=== PATIENT | male | born 1930 | race Caucasian/White ===

== ENCOUNTER → 2016-12-28 | Outpatient (CLI) | payer MEDICARE, OTHER ==
[2014-04-04 11:15] VITALS: Ht 169.7 cm; Wt 81.8 kg
[~2016-12-28] VITALS: Ht 169.7 cm; Wt 81.8 kg
[~2016-12-28] MED LIST: ACET-2161 PO; AMIO200T2 PO; AMLO5TAB2 PO; APIX5TAB PO; ASPI325T PO; CALC-39 PO; DOCU-175 PO; FURO20TA4 PO; MELA10TA2 PO; METH10TA7 PO; MULT-806 PO; POLY17PO6 PO; SALI10004 PO; [UNRECOGNIZED DRUG - CODE] PO
== END ==
LOC: RC 13:30
PROVIDERS: ATTEND Internal Medicine Cardiovascular Disease
DX: I48.0 Paroxysmal atrial fibrillation (principal)
CPT/HCPCS: 94010; 94726

== ENCOUNTER → 2017-01-15 | Outpatient (CLI) | payer MEDICARE, OTHER ==
[~2017-01-15] MED LIST changes: +[UNRECOGNIZED DRUG - OTHER] PO
[2017-01-15 10:27] LABS: ALBUMIN 4.1 G/DL (3.5-5.0); ALBUMIN/GLOBULIN RATIO 1.5 RATIO (1.1-2.2); ALKALINE PHOSPHATASE 124 U/L (38-126); ALT (SGPT) 84 U/L (21-72); ANION GAP 15 MEQ/L (5-15); AST (SGOT) 70 U/L (17-59); BUN/CREATININE RATIO 17 RATIO (6-26); CALCIUM 9.4 MG/DL (8.4-10.2); CHLORIDE 109 MEQ/L (98-107); CO2 - CARBON DIOXIDE 22 MEQ/L (22-30); CREATININE 4.3 MG/DL (0.8-1.5); GLOMERULAR FILTRATION RATE 13; GLUCOSE 104 MG/DL (75-110); POTASSIUM 4.8 MEQ/L (3.6-5); SODIUM 146 MEQ/L (134-144); TOTAL PROTEIN 6.9 G/DL (6.3-8.2)
== END ==
LOC: LABN 10:08
PROVIDERS: ATTEND Family Medicine
DX: N18.4 Chronic kidney disease, stage 4 (severe) (principal); R29.6 Repeated falls; R53.1 Weakness
CPT/HCPCS: 80053

== ENCOUNTER 2017-01-16 06:04 | Emergency (ER) | payer MEDICARE, OTHER ==
[~2017-01-16] VITALS: Ht 175.3 cm; Wt 80.0 kg
[~2017-01-16 06:04] MED LIST changes: -[UNRECOGNIZED DRUG - OTHER] PO
[2017-01-16 06:07] VITALS: Ht 175.3 cm; Wt 80.0 kg
--- OUTSIDE RECORDS SUMMARY | 2017-01-16 06:07 | XMS REPORT | Continuity of Care Document ---
Author Author [facility] Organization [facility] Address Unknown Phone Unavailable Support Name Relationship Address Phone MANOHAR DAVIS MD Caregiver [address] [place] [address] Unavailable CHEKO LEÓN MD Caregiver [address] [place] [address] Unavailable JAVAD BENITES Next Of Kin [address] [address] Insurance Providers Guarantor Clemencia Benites Address [address] [address] Email [email or web address] Payer Medicare Policy Number [id number] Subscriber's Name Clemencia Benites Relationship 18 Self Effective Date 94 Payer [place] Policy Number [id number] Subscriber's Name Clemencia Benites Relationship 18 Self Group Number [id number] Advance Directives Directive Response Recorded Date/Time Advanced Directives Type None 04/04/14 10:38am Chief Complaint and Reason for Visit Chief Complaint General Reason for Visit Renal insufficiency Problems Active Problems Medical Problem Onset Date Status Atrial fibrillation, new onset Unknown Acute CKD (chronic kidney disease), stage IV Unknown Chronic Chest pain Unknown Acute Chest pain Unknown Acute Dementia Unknown Chronic Duodenitis Unknown Acute Edema Unknown Chronic History of hiatal hernia Unknown Chronic History of prostate cancer Unknown Resolved Hyperkalemia Unknown Resolved Hypertension Unknown Acute Hyperthyroidism Unknown Acute Pulmonary edema cardiac cause Unknown Acute Suspected DVT (deep vein thrombosis) Unknown Urinary tract infection Unknown Acute Urinary tract infection Unknown Acute Weakness of both legs Unknown Surgical Problem Onset Date Status History of urostomy Unknown Chronic Past Problems Medical Problem Onset Date Renal insufficiency Unknown Medications Current Home Medications Medication Dose Units Route Directions Days Qty Instructions Start Date Acetaminophen (Acetaminophen Extra Strength) 500 Mg Tablet 2 Tab Oral Three Times A Day 07/09/16 Amiodarone Hcl 200 Mg Tablet 200 Mg Oral Twice A Day 07/09/16 Amlodipine Besylate 5 Mg Tablet 5 Mg Oral Daily 07/09/16 Apixaban (Eliquis) 5 Mg Tablet 5 Mg Oral Twice A Day 07/09/16 Aspirin 325 Mg Tablet 160 Mg Oral Daily 07/09/16 Calcium Carbonate/Vitamin D3 (Calcium 600 + Vit D Tablet) 1 Each Tablet 1 Tab Oral Daily 07/09/16 Docusate Sodium 100 Mg Capsule 1 Cap Oral Bedtime 04/20/16 Furosemide 20 Mg Tablet 20 Mg Oral Twice A Day 07/09/16 Melatonin 10 Mg Tablet 10 Mg Oral Bedtime 07/09/16 Methimazole 10 Mg Tablet 2 Mg Oral Twice A Day 07/09/16 Multivitamins (Multivitamin) 1 Tab Tablet 1 Tab Oral Daily Polyethylene Glycol 3350 (Miralax) 17 Gm Powd.pack 17 G Oral Daily for Constipation 04/20/16 Psyllium Husk (With Sugar) (Metamucil Powder) 538 Gm Powder 1 Tbs Oral Daily 04/20/16 Saliva Substitution Combo No.9 (Biotene) 1,000 Ml Mouthwash 15 Ml Oral Bedtime 04/20/16 Past Home Medications Medication Directions Ordered Status Amiodarone Hcl (Pacerone) 200 Mg Tablet, 200 Mg Oral Daily for Paroxysmal Atrial Fibrillation 04/22/16 Discontinued Aspirin 325 Mg Tablet, 0.5 Tab Oral Daily for Inflammation 06/03/14 Discontinued Aspirin 81 Mg Tablet, 81 Mg Oral Daily 04/04/14 Discontinued Hydrocodone Bit/Acetaminophen ([place] 5/325 Tablet) 1 Tab Tablet, 1 Tab Oral Every 4 Hours for Pain 04/04/14 Discontinued Levofloxacin (Levaquin) 500 Mg Tablet, 500 Mg Oral Daily 04/04/14 Discontinued Metronidazole 500 Mg Tablet, 500 Mg Oral Three Times A Day 04/04/14 Discontinued Nyquil , As Needed 09/28/08 Discontinued Pantoprazole Sodium (Protonix) 40 Mg Tablet.dr, 40 Mg Oral Before Breakfast for Gerd 06/03/14 Discontinued Pantoprazole Sodium (Protonix) 40 Mg Tablet.dr, 40 Mg Oral Daily 04/04/14 Discontinued Promethazine Hcl (Phenergan) 25 Mg Tablet, 25 Mg Oral Every 6 Hours for Nausea &/Or Vomiting 04/04/14 Discontinued Sucralfate 1 Gm Tablet, 1 Gm Oral Befor Lunch/Dinner 06/03/14 Discontinued Tramadol Hcl 50 Mg Tablet, 50 Mg Oral Twice A Day 04/04/14 Discontinued Social History Social History Problem Response Recorded Date/Time Onset Date Status Chewing Tobacco Status No 07/09/2016 10:13pm Not Applicable Not Applicable Hx Substance Use No 07/09/2016 10:13pm Not Applicable Not Applicable Hx Alcohol Use Y WINE DAILY 07/09/2016 10:13pm Not Applicable Not Applicable Has the pt used tobacco in the last 12 months No 04/21/2016 5:24am Not Applicable Not Applicable Tobacco Usage none 04/20/2016 4:09pm Not Applicable Not Applicable Query Response Start Date Stop Date Smoking Status Never smoker Hospital Discharge Instructions No hospital discharge instructions. Plan of Care Discharge Date 07/10/16 12:51am Disposition 01 DISCHARGED HOME, SELF-CARE Condition at Discharge Improved Instructions/Education Provided DI for Kidney Failure Prescriptions See Medication Section Referrals CHEKO LEÓN MD Address: [address] [place] [address] [phone] Additional Instructions/Education Take your routine medications as prescribed only in the blister pack. Follow-up with Dr. León early part of next week for recheck of your lab values, these will then be communicated to Dr. Addison. Care Plan and Goals Physician Care Plan Problem: Renal insufficiency Goal: Follow up with primary care provider Instructions: Take medications and follow care plan as discussed/written Take your routine medications as prescribed only in the blister pack. Follow-up with Dr. León early part of next week for recheck of your lab values, these will then be communicated to Dr. Addison. Functional Status No functional status results. Allergies, Adverse Reactions, Alerts Allergen Type Severity Reaction Status Last Updated Morphine Allergy Mild HALLUCINATIONS Active 07/09/16 Immunizations Query Response on File Recorded Date/Time Hx Influenza Vaccination Y UNSURE 04/21/16 5:24am Hx Pneumococcal Vaccination Y MORE RECENT THAN 200104/21/16 5:24am Hx Influenza Vaccination Y UNSURE 04/21/16 5:24am Influenza Vaccine Hx FALL 201407/09/16 10:13pm Vital Signs Acute Vital Signs Vital Response Date/Time Temperature (Fahrenheit) 98.2 deg F (96.8 - 99.1) 07/09/2016 8:30pm Temperature (Calculated Celsius) 36.60936 degrees C (36.0 - 37.3) 07/09/2016 8:30pm Pulse Rate (adult) 69 bpm (60 - 100) 07/10/2016 12:51am Respiratory Rate 18 breaths/min (10 - 20) 07/10/2016 12:51am O2 Sat by Pulse Oximetry 95 % (90 - 100) 07/10/2016 12:51am Oxygen Delivery Method Nasal Cannula 04/21/2016 9:13pm Oxygen Delivery Method Room Air 04/22/2016 3:34pm Oxygen Flow Rate 2.00 L/min 04/21/2016 9:13pm Blood Pressure 144/65 mm Hg 07/10/2016 12:51am Blood Pressure Source Automatic Cuff 04/22/2016 3:34pm Height (Feet) 5 feet 07/09/2016 8:30pm Height (Inches) 8.00 inches 07/09/2016 8:30pm Weight (Kilograms) 82.300 kg 07/09/2016 8:30pm Body Mass Index (BMI) 27.0 07/09/2016 8:30pm Results Laboratory Results Test Name Result Units Flags Reference Collection Date/Time Result Date/ Time Comments Free Thyroxine 2.88 NG/DL H 0.78-2.19 04/20/2016 12:10pm 04/20/2016 1: 54pm Thyroid Stimulating Hormone (TSH) < 0.02 MIU/L L 0.47-4.68 04/20/2016 12: 10pm 04/20/2016 3:05pm Activated Partial Thromboplast Time 56.4 SEC H 24-36 04/21/2016 5:22am 04/21/2016 5:39am Troponin I 0.117 ng/ml 0-0.12 04/21/2016 5:22am 04/21/2016 5:55am Troponin values with a difference of 55% increase from orginal troponin value represent a true biological DELTA value. (%increase Calc=Orginal Troponin value, divided by subsequent Troponin value, multiplied by 100) Magnesium Level 2.0 MG/DL 1.6-2.3 04/22/2016 4:56am 04/22/2016 6:16am Free Triiodothyronine 6.63 PG/ML H 2.77-5.27 04/21/2016 5:22am 2015 3:27am White Blood Count 4.8 T/MM3 4.5-11.0 06/03/2016 11:15am 06/03/2016 3: 38pm Red Blood Count 3.95 M/MM3 L 4.50-5.90 06/03/2016 11:06/03/2016 3: 38pm Hemoglobin 12.2 GM/DL L 13.5-17.5 06/03/2016 11:06/03/2016 3:38pm Hematocrit 37.7 % L 41-53 06/03/2016 11:06/03/2016 3:38pm Mean Corpuscular Volume 95.4 UM3 80-100 06/03/2016 11:06/03/2016 3 :38pm Mean Corpuscular Hemoglobin 30.9 UUG 26-34 06/03/2016 11:2015 3:38pm Mean Corpuscular Hemoglobin Concent 32.4 GM/DL 31-37 06/03/2016 11:06/03/2016 3:38pm RDW Standard Deviation 46.8 FL 36.9-50.2 06/03/2016 11:06/03/2016 3:38pm Platelet Count 332 T/MM3 130-400 06/03/2016 11:06/03/2016 3:38pm Mean Platelet Volume 11.0 UM3 9.4-12.4 06/03/2016 11:06/03/2016 3: 38pm Neutrophils (%) (Auto) 73.6 % H 33-66 06/03/2016 11:06/03/2016 3: 38pm Lymphocytes (%) (Auto) 12.1 % L 23-45 06/03/2016 11:06/03/2016 3: 38pm Monocytes (%) (Auto) 10.8 % H 0-9.0 06/03/2016 11:06/03/2016 3: 38pm Eosinophils (%) (Auto) 1.9 % 0-4 06/03/2016 11:06/03/2016 3:38pm Basophils (%) (Auto) 0.4 % 0-2 06/03/2016 11:06/03/2016 3:38pm Immature Granulocyte % (Auto) 1.2 % H 0.0-0.5 06/03/2016 11:2015 3:38pm Absolute Neutrophils (auto) 3.5 T/MM3 1.8-7.7 06/03/2016 11:15am 2015 3:38pm Absolute Lymphocytes (auto) 0.6 T/MM3 L 1-4.8 06/03/2016 11:15am 2015 3:38pm Absolute Monocytes (auto) 0.5 T/MM3 0-0.8 06/03/2016 11:15am 2015 3:38pm Absolute Eosinophils (auto) 0.1 T/MM3 0-0.5 06/03/2016 11:152015 3:38pm Absolute Basophils (auto) 0.0 T/MM3 0-0.2 06/03/2016 11:15am 2015 3:38pm Absolute Immature Granulocyte (auto 0.06 T/MM3 H 0.00-0.03 06/03/2016 11: 15am 06/03/2016 3:38pm Phosphorus Level 4.7 MG/DL H 2.5-4.5 06/03/2016 11:15am 06/03/2016 3: 44pm Icterus Index < 2 0-7 07/09/2016 11:45pm 07/10/2016 12:02am Chemistry Specimen Hemolysis < 15 0-25 07/09/2016 11:45pm 07/10/2016 12:02am 0-25: Specimen Exhibited No Hemolysis. Turbidity < 20 0-20 07/09/2016 11:45pm 07/10/2016 12:02am Sodium Level 141 MEQ/L 134-144 07/09/2016 11:45pm 07/10/2016 12:02am Potassium Level 4.4 MEQ/L 3.6-5 07/09/2016 11:45pm 07/10/2016 12:02am Chloride Level 106 MEQ/L 98-107 07/09/2016 11:45pm 07/10/2016 12:02am Carbon Dioxide Level 24 MEQ/L 22-30 07/09/2016 11:45pm 07/10/2016 12: 02am Anion Gap 11 MEQ/L 5-15 07/09/2016 11:45pm 07/10/2016 12:02am Blood Urea Nitrogen 70.0 MG/DL *H 9-20 07/09/2016 11:45pm 07/10/2016 12: 07am Creatinine 3.9 MG/DL H 0.8-1.5 07/09/2016 11:45pm 07/10/2016 12:02am BUN/Creatinine Ratio 18 RATIO 6-26 07/09/2016 11:45pm 07/10/2016 12: 02am Glomerular Filtration Rate Calc 15 07/09/2016 11:45pm 07/10/2016 12 :02am Glucose Level 102 MG/DL 75-110 07/09/2016 11:45pm 07/10/2016 12:02am Calculated Osmolality 292 MOSM/KG H 261-280 07/09/2016 11:45pm 2015 12:02am Calcium Level 8.2 MG/DL L 8.4-10.2 07/09/2016 11:45pm 07/10/2016 12: 02am Total Bilirubin 0.40 MG/DL 0.20-1.30 07/09/2016 10:03pm 07/09/2016 10: 21pm Alkaline Phosphatase 138 U/L H 38-126 07/09/2016 10:03pm 07/09/2016 10: 21pm Total Protein 6.9 G/DL 6.3-8.2 07/09/2016 10:03pm 07/09/2016 10:21pm Albumin 3.9 G/DL 3.5-5.0 07/09/2016 10:03pm 07/09/2016 10:21pm Globulin 3.0 G/DL 2.4-3.6 07/09/2016 10:03pm 07/09/2016 10:21pm Albumin/Globulin Ratio 1.3 RATIO 1.1-2.2 07/09/2016 10:03pm 07/09/2016 10:21pm Aspartate Amino Transf (AST/SGOT) 43 U/L 17-59 07/09/2016 10:03pm 07/09 10:21pm Alanine Aminotransferase (ALT/SGPT) 49 U/L 21-72 07/09/2016 10:03pm 10:21pm SP-Oxo-M-Type Natriuretic Peptide 3650 PG/ML H 0-175 07/09/2016 10:03pm 07/09/2016 11:27pm Rule in cut points: <50 years old=450; 50-75 years old=900; >75 years old=1800; When utilizing ProBNP rule-in cut points, adjustment for impaired renal function is typically not required. Procedures Procedure Status Date Provider(s) METABOLIC PANEL TOTAL CA Completed 04/20/16 ASSAY OF FREE THYROXINE Completed 04/20/16 ASSAY THYROID STIM HORMONE Completed 04/20/16 RENAL FUNCTION PANEL Completed 06/03/16 COMPLETE CBC W/AUTO DIFF WBC Completed 06/03/16 Encounters Encounter Location Arrival/Admit Date Discharge/Depart Date Attending Provider Departed Emergency Room [facility] 07/09/16 8:02pm 07/10/16 12: 51am MANOHAR DAVIS MD Registered Clinic [facility] 06/03/16 3:32pm BECKY ADDISON MD Discharged Inpatient [facility] 04/20/16 2:18pm 04/22/16 4:25pm BRANDON HERRERA MD Registered [facility] 04/20/16 1:00pm CHEKO LEÓN MD Recent Diagnosis
--- OUTSIDE RECORDS SUMMARY | 2017-01-16 06:07 | XMS REPORT | Referral Summary ---
Author Author [facility] Organization [facility] Address Unknown Phone Unavailable Care Team Providers Care See Supervisor Name Role Phone Fiona León Primary Care Physician [phone] Encounter VC Date(s): 07/13/16 - 07/13/16 [facility] [address] [place] [address] Discharge Diagnosis: 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, stage 4 (severe) Discharge Disposition: 01-Home or Self Care Attending Physician: Oscar León MD Vital Signs Most recent to 1 oldest [Reference Range]: Peripheral Pulse 79 bpm Rate [60-100 bpm] (07/13/16 8:33 AM) Blood Pressure 110/58 mmHg [90-140/60-90 mmHg] (07/13/16 8:33 AM) Problem List Condition Effective Dates Status Health Status Informant ACQUIRED Active SPONDYLOLISTHESIS(Co nfirmed) Actinic keratosis Active (disorder)(Confirmed ) Amnesia Active (finding)(Confirmed) BACKACHE, Active UNSPECIFIED(Confirme d) Bladder 2006 Resolved cancer(Confirmed) Chronic kidney Resolved disease stage 3 (disorder)(Confirmed ) DDD (degenerative Active disc disease), lumbar(Confirmed) Gastroesophageal Active reflux disease (disorder)(Confirmed ) GERD(Confirmed) Resolved Personal history of Active malignant neoplasm of bladder(Confirmed) Hx of abnormal Resolved prost. 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 Jaime Allergies, Adverse Reactions, Alerts Substance Reaction Severity Status morphine Active Medications acetaminophen 500 mg oral tablet 1,000 mg 2 tabs, Oral, TID, 0 Refill(s) Start Date: 07/09/16 Status: Ordered amiodarone 200 mg oral tablet 200 mg 1 tabs, Oral, BID, # 30 tabs, 6 Refill(s), Pharmacy: [facility] , 1 tabs Oral BID Start Date: 05/12/16 Status: Ordered amLODIPine 5 mg oral tablet 5 mg 1 tabs, Oral, Daily, # 90 tabs, 1 Refill(s), Pharmacy: [facility] , 1 tabs Oral Daily Start Date: 04/30/16 Status: Ordered aspirin 325 mg oral tablet mg tabs, Oral, Daily, 160mg, 0 Refill(s) Start Date: 07/09/16 Status: Ordered Biotene Mouthwash 0 Refill(s) Start Date: 01/03/16 Status: Ordered Calcium 500+D 1 tabs, Chewed, Daily, 0 Refill(s) Start Date: 03/18/15 Status: Ordered Centrum Silver 1, Oral, Daily, 0 Refill(s) Start Date: 03/18/15 Status: Ordered docusate sodium 100 mg, Oral, Daily, 0 Refill(s) Start Date: 04/20/16 Status: Ordered Eliquis 5 mg oral tablet 5 mg 1 tabs, Oral, BID, # 180 Each, 1 Refill(s), Pharmacy: [facility] , 1 tabs Oral BID Start Date: 04/30/16 Status: Ordered furosemide 20 mg oral tablet 20 mg 1 tabs, Oral, BID, 0 Refill(s) Start Date: 05/27/16 Status: Ordered Melatonin Bedtime (once a day), 0 Refill(s) Start Date: 04/20/16 Status: Ordered Metamucil 1.7 g, Oral, Daily, 0 Refill(s) Start Date: 03/18/15 Status: Ordered methimazole 10 mg oral tablet 20 mg 2 tabs, Oral, BID, 0 Refill(s) Start Date: 07/09/16 Status: Ordered MiraLax oral powder for reconstitution 17 g, Oral, Daily, dissolve in water before taking, # 255 g, 0 Refill(s), other reason (Rx) Start Date: 03/18/15 Status: Ordered Tylenol Extra Strength 1,000 mg, Oral, TID, 0 Refill(s) Start Date: 07/09/16 Status: Ordered Results No data available for this section Immunizations Vaccine Date Refusal Reason influenza virus vaccine, live 09/01/12 tetanus-diphth toxoids (Td) adult/adol 06/15/03 zoster vaccine live 02/09/13 zoster vaccine live 07/20/12 Procedures Procedure Date Related Diagnosis Body Site Left L3-4/L4-5 Transforaminal 10/02/14 Right L3-4/L4-5 Transforaminal 09/17/14 Left L3-4/L4-5 Transforaminal 07/24/14 Right L3-4/L4-5 Transforaminal 07/10/14 Exploratory laparotomy for evisceration 11/16/08 Wound dehiscence 11/16/08 Co-surgery 11/01/08 3rd BCG bladder Instillation 09/04/08 2nd BCG bladder instillation 08/28/08 1st BCG bladder Instillation 08/07/08 Cystoscopy/SLT laser vaporation 07/09/08 Cystoscopy/fulguration/bladder bx 04/27/08 Cystoscopy/bladder bx/fulguration 02/10/08 Cystoscopy/bladder bx and fulguration 09/28/07 Construction of urostomy 2007 Reverse total lt shoulder 09/12/07 Cystoscopy irrigation of bladder scabs 07/01/07 Bladder tumor transurethral resection 06/22/07 CTS1 2002 Cystoscopy transrectal needle prostate bx 08/01/02 R shoulder 01/2002 Right chohlear Implant 1986 Appendectomy Bladder Biopsy Bladder biopsy Cardiac catheterization Cystoscopy transrectal needle prostate bx Fulguration 1Dr. Miguelina Social History Social History Type Response Smoking Status Never smoker; Type: Cigarettes Assessment and Plan Extracted from: Title: CDM OV Author: Oscar León MD Date: 07/13/16 Impression and Plan Diagnosis 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, stage 4 (severe) ([id number] N18.4, Discharge, Medical). Orders Orders (Selected) Outpatient Orders Future (On Hold) BMP: .
--- OUTSIDE RECORDS SUMMARY | 2017-01-16 06:07 | XMS REPORT | Referral Summary ---
Author Author [facility] Organization [facility] Address Unknown Phone Unavailable Care Team Providers Care Communication Clerk Name Role Phone Fiona León Primary Care Physician [phone] Encounter VC Date(s): 07/29/16 - 07/29/16 [facility], [address] [place] [id number] Discharge Diagnosis: Hyperthyroidism Discharge Diagnosis: Anemia in chronic kidney disease Discharge Diagnosis: Counseling regarding end of life decision making Discharge Diagnosis: End stage renal disease Discharge Diagnosis: Insomnia Discharge Diagnosis: 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, stage 4 (severe) Discharge Disposition: 01-Home or Self Care Attending Physician: Oscar León MD Admitting Physician: Oscar León MD Vital Signs Most recent to 1 oldest [Reference Range]: Peripheral Pulse 69 bpm Rate [60-100 bpm] (07/29/16 9:58 AM) Blood Pressure 140/58 mmHg [90-140/60-90 mmHg] (07/29/16 9:58 AM) Problem List Condition Effective Dates Status Health Status Informant ACQUIRED Active SPONDYLOLISTHESIS(Co nfirmed) Actinic keratosis Active (disorder)(Confirmed ) Amnesia Active (finding)(Confirmed) Anemia in chronic Active kidney disease(Confirmed) BACKACHE, Active UNSPECIFIED(Confirme d) Bladder 2006 Resolved cancer(Confirmed) Chronic kidney Resolved disease stage 3 (disorder)(Confirmed ) Chronic kidney Active disease with symptom management only, stage 4 (severe)(Confirmed) DDD (degenerative Active disc disease), lumbar(Confirmed) Gastroesophageal [...] Hx of urinary Resolved retention/bladder scabs/elevated PSA(Confirmed) Hyperthyroidism(Conf Active irmed) 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) Lumbar Active spondylosis(Confirme d) Mild cognitive Active disorder (disorder)(Confirmed ) Osteoarthritis(Confi Resolved rmed) PT not Resolved circumcised(Confirme d) Renal Resolved disease(Confirmed)1 Insomnia(Confirmed) Active Spinal Stenosis of Active Lumbar Region with [...] BID, # 30 tabs, 6 Refill(s), Pharmacy: [facility] , 1 tabs Oral BID Start Date: 05/12/16 Status: Ordered amLODIPine 5 mg oral tablet 5 mg 1 tabs, Oral, Daily, # 90 tabs, 1 Refill(s), Pharmacy: [facility] , 1 tabs Oral Daily Start Date: [...] BID, # 180 Each, 1 Refill(s), Pharmacy: [facility] , 1 tabs Oral BID Start Date: 04/30/16 Status: Ordered furosemide 20 mg oral tablet 20 mg 1 tabs, Oral, BID, 0 Refill(s) Start Date: 05/27/16 Status: Ordered Lidoderm 5% topical film 1 patches, Topical, Daily, Apply patch to low back and remove patches after 12 hours, # 10 patches, 0 Refill(s), Pharmacy: [facility] Start Date: 07/22/16 Status: Ordered Melatonin Bedtime (once a day), [...] Cigarettes Assessment and Plan Extracted from: Title: Ambulatory Patient Education Author: Oscar León MD Date: Nephrology End-Stage Kidney Disease The kidneys are two organs that lie on either side of the spine between the middle of the back and the front of the abdomen. The kidneys: Remove wastes and extra water from the blood. Produce important hormones. These help keep bones strong, regulate blood pressure, and help create red blood cells. Balance the fluids and chemicals in the blood and tissues. End-stage kidney disease occurs when the kidneys are so damaged that they cannot do their job. When the kidneys cannot do their job, life-threatening problems occur. The body cannot stay clean and strong without the help of the kidneys. In end-stage kidney disease, the kidneys cannot get better.You need a new kidney or treatments to do some of the work healthy kidneys do in order to stay alive. CAUSES End-stage kidney disease usually occurs when a long-lasting (chronic) kidney disease gets worse. It may also occur after the kidneys are suddenly damaged ( acute kidney injury). SYMPTOMS Swelling (edema) of the legs, ankles, or feet. Tiredness (lethargy). Nausea or vomiting. Confusion. Problems with urination, such as: Decreased urine production. Frequent urination, especially at night. Frequent accidents in children who are potty trained. Muscle twitches and cramps. Persistent itchiness. Loss of appetite. Headaches. Abnormally dark or light skin. Numbness in the hands or feet. Easy bruising. Frequent hiccups. Menstruation stops. DIAGNOSIS Your health care provider will measure your blood pressure and take some tests. These may include: Urine tests. Blood tests. Imaging tests, such as: An ultrasound exam. Computed tomography (CT). A kidney biopsy. TREATMENT There are two treatments for end-stage kidney disease: A procedure that removes toxic wastes from the body (dialysis). Receiving a new kidney (kidney transplant). Both of these treatments have serious risks and consequences. Your health care provider will help you determine which treatment is best for you based on your health, age, and other factors. In addition to having dialysis or a kidney transplant, you may need to take medicines to control high blood pressure ( hypertension) and cholesterol and to decrease phosphorus levels in your blood. HOME CARE INSTRUCTIONS Follow your prescribed diet. Take medicines only as directed by your health care provider. Do not take any new medicines (prescription, ejuz-pdu-xuhnzft, or nutritional supplements) unless approved by your health care provider. Many medicines can worsen your kidney damage or need to have the dose adjusted. Keep all follow-up visits as directed by your health care provider. MAKE SURE YOU: Understand these instructions. Will watch your condition. Will get help right away if you are not doing well or get worse. This information is not intended to replace advice given to you by your health care provider. Make sure you discuss any questions you have with your health care provider. Document Released: 12/03/2004 Document Revised: 10/04/2015 Document Reviewed: [employer] Interactive Patient Education 2016 [employer] No follow up information was provided. Extracted from: Title: CDM OV Author: Oscar León MD Date: 07/29/16 Impression and Plan Diagnosis 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, stage 4 (severe) (BFA54-LT N18.4, Discharge, Medical). Anemia in chronic kidney disease (TYF51-OH N18.9, Discharge, Medical). End stage renal disease (KIT58-JZ N18.6, Discharge, Medical). Insomnia (KTC59-DF G47.00, Discharge, Medical). Hyperthyroidism (ESH29-ZK E05.90, Discharge, Medical). Orders Orders (Selected) Outpatient Orders Future (On Hold) BMP: CBC w/ Differential: TSH with Reflex Free T4: .
--- OUTSIDE RECORDS SUMMARY | 2017-01-16 06:08 | XMS REPORT | Referral Summary ---
Author Author [facility] Organization [facility] Address Unknown Phone Unavailable Care Team Providers Care Seed Production Field Supervisor Name Role Phone Fiona León Primary Care Physician [phone] Encounter Date(s): 07/09/16 - 07/09/16 [facility] [address] [place] [id number] Discharge Diagnosis: History of atrial fibrillation Discharge Diagnosis: Mild cognitive disorder (disorder) Discharge Diagnosis: Personal history of malignant neoplasm of bladder Discharge Diagnosis: 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, stage 4 (severe) Discharge Diagnosis: History of hyperthyroidism Discharge Disposition: 01-Home or Self Care Attending Physician: Oscar León MD Admitting Physician: Oscar León MD Vital Signs Most recent to 1 oldest [Reference Range]: Peripheral Pulse 80 bpm Rate [60-100 bpm] (07/09/16 10:46 AM) Blood Pressure 136/58 mmHg [90-140/60-90 mmHg] (07/09/16 10:46 AM) Problem List Condition Effective Dates Status [...] BID, # 30 tabs, 6 Refill(s), Pharmacy: [facility] , 1 tabs Oral BID Start Date: 05/12/16 Status: Ordered amLODIPine 5 mg oral tablet 5 mg 1 tabs, Oral, Daily, # 90 tabs, 1 Refill(s), Pharmacy: [facility] , 1 tabs Oral Daily Start Date: [...] BID, # 180 Each, 1 Refill(s), Pharmacy: [facility] , 1 tabs Oral BID Start Date: [...] Refill(s) Start Date: 07/09/16 Status: Ordered Results Chemistry Most recent to 1 oldest [Reference Range]: Sodium Lvl [135-144 138 mEq/L mEq/L] (07/09/16 12:15 PM) Potassium Lvl 4.9 mEq/L [3.5-5.2 mEq/L] (07/09/16 12:15 PM) Chloride [99-111 102 mEq/L mEq/L] (07/09/16 12:15 PM) CO2 [23-31 mEq/L] 22 mEq/L *LOW* (07/09/16 12:15 PM) AGAP [3-20] 14 (07/09/16 12:15 PM) BUN [8-26 mg/dL] 73 mg/dL *HI* (07/09/16 12:15 PM) Glucose Lvl [70-99 98 mg/dL mg/dL] (07/09/16 12:15 PM) Creatinine Lvl 4.11 mg/dL [0.72-1.25 mg/dL] *HHI* (07/09/16 12:15 PM) eGFR [>60 mL/min] 14 mL/min 1 *ABN* (07/09/16 12:15 PM) Calcium Lvl 9.3 mg/dL [8.9-10.5 mg/dL] (07/09/16 12:15 PM) 1Result Comment: Multiply eGFR results by 1.21 for race. 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 Orders Orders (Selected) Outpatient Orders Ordered BMP: eGFR: Canceled Request for Therapies: .
--- OUTSIDE RECORDS SUMMARY | 2017-01-16 06:08 | XMS REPORT | Referral Summary ---
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, stage 4 (severe) Discharge Diagnosis: Anemia in chronic kidney disease Discharge Diagnosis: Spinal stenosis of lumbar region with neurogenic claudication Discharge Diagnosis: Sleep disturbance Discharge Disposition: 01-Home or Self Care Attending Physician: Oscar León MD Admitting Physician: Oscar León MD Vital Signs Most recent to 1 oldest [Reference Range]: Peripheral Pulse 62 bpm Rate [60-100 bpm] (09/29/16 10:29 AM) Blood Pressure 124/50 mmHg [90-140/60-90 mmHg] (09/29/16 10:29 AM) Problem List Condition Effective Dates Status [...] BID, # 30 tabs, 6 Refill(s), Pharmacy: [facility] , 1 tabs Oral BID Start Date: 05/12/16 Status: Ordered amLODIPine 5 mg oral tablet 5 mg 1 tabs, Oral, Daily, # 90 tabs, 1 Refill(s), Pharmacy: [facility] , 1 tabs Oral Daily Start Date: [...] BID, # 180 Each, 1 Refill(s), Pharmacy: [facility] , 1 tabs Oral BID Start Date: [...] reason (Rx) Start Date: 03/18/15 Status: Ordered Results No data available for this section Immunizations Given and Recorded Vaccine Date Status Refusal Reason influenza virus vaccine, live 09/01/12 Given tetanus-diphth toxoids (Td) adult/adol 06/15/03 Recorded zoster vaccine live 02/09/13 Given zoster vaccine live 07/20/12 Given Procedures Procedure Date Related Diagnosis Body Site [...] CDM OV Author: Oscar León MD Date: 09/29/16 Impression and Plan Diagnosis Spinal stenosis of lumbar region with neurogenic claudication (BXT78-FE M48.06, Discharge, Medical). 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 Anemia in chronic kidney disease (OSO20-TM N18.9, Discharge, Medical). Sleep disturbance (GPK90-ET G47.9, Discharge, Medical).
--- OUTSIDE RECORDS SUMMARY | 2017-01-16 06:08 | XMS REPORT | Continuity of Care Document ---
Author Author [facility] Organization [facility] Address Unknown Phone Unavailable Support Name Relationship Address Phone CHEKO SIDDIQUI MD Caregiver [address] [place] [address] ELIAN RINCON MD Caregiver [address] [place] [phone] JAVAD BENITES Next Of Kin [address] [place], [place] [id number] Insurance Providers Payer Name Policy Number Subscriber Name Relationship Medicare [id number] Clemencia Benites 17 Self [employer] [id number] Clemencia Benites 18 Self Advance Directives Directive Response Recorded Date/Time Advanced Directives Type None 04/04/14 10:38am Problems Medical Problems Problem Onset Date Status Urinary tract infection Unknown Active Duodenitis Unknown Active Medications Medication Dose Route Sig Days/Qty Instructions Order Date Discontinued Date Status Calcium Carbonate 1 Tab PO DAILY 09/28/08 Active Multivitamins 1 Tab PO DAILY 09/28/08 Active [Nyquil] NEEDED 09/28/08 Active Tramadol Hcl 50 Mg PO TWICE A DAY 04/04/14 Active Aspirin 81 Mg PO DAILY 2 Qty 04/04/14 Active Acetaminophen 325 Mg PO NEEDED PRN PAIN 2 Qty 04/04/14 Active Pantoprazole Sodium 40 Mg PO DAILY 30 Qty 1 PO Q D 04/04/14 Active Levofloxacin 500 Mg PO DAILY 7 Qty 04/04/14 Active Metronidazole 500 Mg PO THREE TIMES A DAY 30 Qty 1 PO TID 04/04/14 Active Promethazine Hcl 25 Mg PO Every 6 Hours For NAUSEA &/OR VOMITING 20 Qty 04/04/14 Active Hydrocodone Bit/Acetaminophen 1 Tab PO EVERY 4 HOURS For PAIN 15 Qty Active Social History Social History Problem Response Recorded Date/Time Smoking Status Never smoker 04/04/2014 11:18am Hx Alcohol Use Y WINE DAILY 04/04/2014 11:18am Hospital Discharge Instructions No hospital discharge instructions. Plan of Care No plan of care. Functional Status Query Response Date Recorded Physical Hygiene Self April 04, 2014 11:18am Disabilities Visual April 04, 2014 11:18am Devices Used Glasses April 04, 2014 11:18am Dressing Self April 04, 2014 11:18am Ambulation Self April 04, 2014 11:18am Diet Self April 04, 2014 11:18am Mental Status Alert April 04, 2014 11:18am Disabilities Visual April 04, 2014 11:18am Devices Used Glasses April 04, 2014 11:18am Physical Hygiene Self April 04, 2014 11:18am Dressing Self April 04, 2014 11:18am Ambulation Self April 04, 2014 11:18am Diet Self April 04, 2014 11:18am Allergies, Adverse Reactions, Alerts Allergen Type Severity Reaction Status Last Updated No Known Drug Allergies Allergy Unknown Active 02/09/08 Immunizations Name Given Type Hx Influenza Vaccination 08 Historical Hx Pneumococcal Vaccination 2002 Historical Hx Influenza Vaccination 08 Historical Vital Signs Acute Vital Signs Vital Response Date/Time Temperature (Fahrenheit) 97.2 deg F (96.8 - 99.1) Temperature (Calculated Celsius) 36.88358 degrees C (36.0 - 37.3) Pulse Rate (adult) 71 bpm (60 - 100) Respiratory Rate 16 breaths/min (10 - 20) O2 Sat by Pulse Oximetry 96 % (90 - 100) Blood Pressure 140/116 mm Hg Height 5 ft 8 in Weight 182 lb Body Mass Index 27.0 kg/m^2 Results Test Source Date Result Interp. Ref. Range Comments Activated Partial Thromboplast Time September 28, 2008 10:15am 26.1 SEC N 25-36 COMMENT ADMIT AT 100 Alanine Aminotransferase (ALT/SGPT) April 04, 2014 11:15am 32 U/L N 21- 72 Albumin April 04, 2014 11:15am 4.0 G/DL N 3.5-5.0 Albumin/Globulin Ratio April 04, 2014 11:15am 1.3 RATIO N 1.1-2.2 Alkaline Phosphatase April 04, 2014 11:15am 106 U/L N 38-126 Amylase Level April 04, 2014 11:15am 102 U/L N 30-110 Anion Gap April 04, 2014 11:15am 13 MEQ/L N 5-15 Aspartate Amino Transf (AST/SGOT) April 04, 2014 11:15am 36 U/L N 17-59 BUN/Creatinine Ratio April 04, 2014 11:15am 17 RATIO N 6-26 Basophils # (Auto) April 04, 2014 11:15am 0.0 T/MM3 N 0-0.2 Basophils (%) (Auto) April 04, 2014 11:15am 0.3 % N 0-2 Blood Urea Nitrogen April 04, 2014 11:15am 36.0 MG/DL H 9-20 Calcium Level April 04, 2014 11:15am 9.3 MG/DL N 8.4-10.2 Calculated Osmolality April 04, 2014 11:15am 277 MOSM/KG N 261-280 Carbon Dioxide Level April 04, 2014 11:15am 23 MEQ/L N 22-30 Chloride Level April 04, 2014 11:15am 104 MEQ/L N 98-107 Creatinine April 04, 2014 11:15am 2.1 MG/DL H 0.8-1.5 Eosinophils # (Auto) April 04, 2014 11:15am 0.2 T/MM3 N 0-0.5 Eosinophils (%) (Auto) April 04, 2014 11:15am 2.8 % N 0-4 Globulin April 04, 2014 11:15am 3.1 G/DL N 2.4-3.6 Glucose Level April 04, 2014 11:15am 94 MG/DL N 75-110 Group A Streptococcus Screen September 20, 2010 6:10pm Negative - Strep culture confirmation to follow Hematocrit April 04, 2014 11:15am 43.1 % N 41-53 Hemoglobin April 04, 2014 11:15am 14.0 GM/DL N 13.5-17.5 Lipase April 04, 2014 11:15am 79 U/L N 23-300 Lymphocytes # (Auto) April 04, 2014 11:15am 0.7 T/MM3 L 1-4.8 Lymphocytes (%) (Auto) April 04, 2014 11:15am 9.3 % L 23-45 Mean Corpuscular Hemoglobin April 04, 2014 11:15am 31.0 UUG N 26-34 Mean Corpuscular Hemoglobin Concent April 04, 2014 11:15am 32.5 GM/DL N 31-37 Mean Corpuscular Volume April 04, 2014 11:15am 95.4 UM3 N 80-100 Mean Platelet Volume April 04, 2014 11:15am 11.5 UM3 N 9.4-12.4 Monocytes # (Auto) April 04, 2014 11:15am 0.8 T/MM3 N 0-0.8 Monocytes (%) (Auto) April 04, 2014 11:15am 9.6 % H 0-9.0 Neutrophils # (Auto) April 04, 2014 11:15am 6.2 T/MM3 N 1.8-7.7 Neutrophils (%) (Auto) April 04, 2014 11:15am 77.0 % H 33-66 Platelet Count April 04, 2014 11:15am 213 T/MM3 N 130-400 Potassium Level April 04, 2014 11:15am 5.1 MEQ/L H 3.6-5 Prothromb Time International Ratio September 28, 2008 10:15am 0.89 N 0.79- 1.23 THERAPUTIC RANGE=2.00-3.00 FOR ANTI-THROMBOSIS THERAPUTIC RANGE=2.50- 3.50 FOR IMPLANTED VALVE RDW Standard Deviation April 04, 2014 11:15am 43.4 FL N 36.9-50.2 Red Blood Count April 04, 2014 11:15am 4.52 M/MM3 N 4.50-5.90 Sodium Level April 04, 2014 11:15am 140 MEQ/L N 134-144 Total Bilirubin April 04, 2014 11:15am 0.60 MG/DL N 0.20-1.30 Total Protein April 04, 2014 11:15am 7.1 G/DL N 6.3-8.2 Troponin I April 04, 2014 11:15am 0.067 ng/ml N 0-0.12 Urine Bacteria April 04, 2014 11:37am 4+ H - COMMENT UROSTOMY BAGHas specimen been collected/obtained? Y Urine Bilirubin April 04, 2014 11:37am Negative - COMMENT UROSTOMY BAGHas specimen been collected/obtained? Y Urine Blood April 04, 2014 11:37am 2+ H - COMMENT UROSTOMY BAGHas specimen been collected/obtained? Y Urine Collection Type April 04, 2014 11:37am Suprapubic - COMMENT UROSTOMY BAGHas specimen been collected/obtained? Y Urine Color April 04, 2014 11:37am Yellow - COMMENT UROSTOMY BAGHas specimen been collected/obtained? Y Urine Culture Indicated April 04, 2014 11:37am Cult reflexed &setup - COMMENT UROSTOMY BAGHas specimen been collected/obtained? Y Urine Glucose (UA) April 04, 2014 11:37am Negative - COMMENT UROSTOMY BAGHas specimen been collected/obtained? Y Urine Ketones April 04, 2014 11:37am Negative - COMMENT UROSTOMY BAGHas specimen been collected/obtained? Y Urine Leukocyte Esterase April 04, 2014 11:37am 3+ H - COMMENT UROSTOMY BAGHas specimen been collected/obtained? Y Urine Nitrite April 04, 2014 11:37am Positive H - COMMENT UROSTOMY BAGHas specimen been collected/obtained? Y Urine Protein April 04, 2014 11:37am Trace H - COMMENT UROSTOMY BAGHas specimen been collected/obtained? Y Urine RBC April 04, 2014 11:37am 20-30 /HPF H - COMMENT UROSTOMY BAGHas specimen been collected/obtained? Y Urine Specific [place] April 04, 2014 11:37am 1.015 - COMMENT UROSTOMY BAGHas specimen been collected/obtained? Y Urine Turbidity April 04, 2014 11:37am Cloudy - COMMENT UROSTOMY BAGHas specimen been collected/obtained? Y Urine Urobilinogen April 04, 2014 11:37am 0.2 EU/DL - COMMENT UROSTOMY BAGHas specimen been collected/obtained? Y Urine WBC April 04, 2014 11:37am Tntc /HPF H - COMMENT UROSTOMY BAGHas specimen been collected/obtained? Y Urine pH April 04, 2014 11:37am 7.5 - COMMENT UROSTOMY BAGHas specimen been collected/obtained? Y White Blood Count April 04, 2014 11:15am 8.0 T/MM3 N 4.5-11.0 Chemistry Specimen Hemolysis April 04, 2014 11:15am 97 H 0-25 0-25: No Hemolysis.26-70: Slight Hemolysis - can falsely elevate K and Urine Protein. 71-285: Moderate Hemolysis - can falsely elevate K, Troponin I, CA 19-9, PTH, CSF GLucose, and Urine Protein, and can falsely decrease Phenytoin. 286-999: Gross Hemolysis - can falsely elevate K, Troponin I, CA 19-9, PTH, CSF Glucose, and Urine Protine, and can falsely decrease Phenytoin. Recommend specimen recollection. Lab Scanned Report September 30, 2012 6:42pm LAB TEST FORM REQUEST [id number] - Turbidity April 04, 2014 11:15am < 20 0-20 Glomerular Filtration Rate Calc April 04, 2014 11:15am 30 - Immature Granulocyte # (Auto) April 04, 2014 11:15am 0.08 T/MM3 H 0.00- 0.03 Immature Granulocyte % (Auto) April 04, 2014 11:15am 1.0 % H 0.0-0.5 Icterus Index April 04, 2014 11:15am < 2 0-7 Group A Streptococcus Culture Throat September 20, 2010 6:33pm Procedures No known history of procedures. Encounters Encounter Location Date/Time Departed Emergency Room [facility] 04/04/14 10:29am Recent Diagnosis
--- OUTSIDE RECORDS SUMMARY | 2017-01-16 06:08 | XMS REPORT | Continuity of Care Document ---
Author Author [facility] Organization [facility] Address Unknown Phone Unavailable Allergies Active Description Code Type Severity Reaction Onset Reported/Identified Relationship to Patient Clinical Status Yes morphine NKMA N/A N/A 01/24/2014 Medications Problems Procedures Results Test Result Range CBC With Platelet and Differential - 03/27/16 10:17 Absolute Basophils 0.02 10*3/uL 0.00- 0.30 Absolute Eosinophils 0.12 10*3 0.00-0.60 Absolute Lymphocytes 0.74 10*3 1.00-4.00 Absolute Monocytes 0.81 10*3 0.20-0.80 Absolute Neutrophils 4.66 10*3 2.50-7.00 Basophils 0 % 0-2 Eosinophils 2 % 0-6 HCT 39.5 % 40.0-54.0 HGB 12.9 g/dL 12.0-16.0 Lymphocytes 12 % 20-40 MCH 31.4 pg 26.0-34.0 MCHC 32.7 g/dL 32.0-36.0 MCV 96.1 fL 80.0-96.0 Monocytes 13 % 4-8 MPV 10.1 fL 8.8-14.8 Neutrophils 73 % 50-70 Platelet Count 343 K/uL 150-400 RBC 4.11 10*6/uL 3.70-5.20 RDW 11.5 % 0.0-14.5 WBC 6.4 K/uL 5.0-10.0 Urinalysis with reflex microscopic - 03/27/16 10:22 Appearance Cloudy NA Bilirubin Negative NA Negative Blood Pos 1+ NA Negative Color Lt Yellow NA Glucose, Urine Negative NA Negative Ketones Negative NA Negative Leukocyte Esterase Pos 3+ NA Negative Nitrites Positive NA Negative pH 7.5 NA 5.0-8.0 Protein Pos 1+ NA Negative Specific [place] 1.020 NA 1.003-1.030 UA Collection type Other NA Urobilinogen 0.2 mg/dL <=1.0 Urine Microscopic - 03/27/16 10:22 Bacteria Numerous NA Epithelial Cells 2 /hpf RBC, Urine 2 /hpf 0-2 WBC, Urine 20 /hpf 0-4 Encounters ACCT No. Visit Date/Time Discharge Status Pt. Type Provider Facility Loc./Unit Complaint [id number] 08/29/2013 09:29:00 08/29/2013 23 :59:59 [facility] Outpatient [id number] 07/19/2013 14:11:00 07/19/2013 23 :59:59 [facility] Outpatient
--- OUTSIDE RECORDS SUMMARY | 2017-01-16 06:09 | XMS REPORT | Continuity of Care Document ---
Author Author [facility] Organization [facility] Address Unknown Phone Unavailable Support Name Relationship Address Phone BRANDON HERRERA MD Caregiver [address] [place] [address] [place] [address] CHEKO LEÓN MD Caregiver [address] [place] [address] ELIAN RINCON MD Caregiver [address] [place] [address] [place] [phone] JAVAD BENITES Next Of Kin [address] [facility] [address] [place] [address] Insurance Providers Payer Name Policy Number Subscriber Name Relationship Medicare [id number] Clemencia Benites 17 Self [place] [id number] Clemencia Benites 18 Self Advance Directives Directive Response Recorded Date/Time Advanced Directives Type None 04/04/14 10:38am Ordered Resuscitation Status Full Code 06/02/14 3:15pm Resuscitation Documents on File No 06/02/14 2:54pm Chief Complaint and Reason for Visit Chief Complaint CHEST PAINS Reason for Visit Chest pain History of urostomy History of hiatal hernia History of prostate cancer Chest pain Problems Medical Problems Problem Onset Date Status Urinary tract infection Unknown Active Duodenitis Unknown Active Urinary tract infection Unknown Active Chest pain Unknown Active History of hiatal hernia Unknown Active History of prostate cancer Unknown Resolved Chest pain Unknown Active Surgical Problems Problem Onset Date Recorded Date/Time Status History of urostomy Unknown 06/02/2014 2:49pm Active Medications Medication Dose Route Sig Days/Qty Instructions Order Date Discontinued Date Status Calcium Carbonate 1 Tab PO DAILY 09/28/08 Active Multivitamins 1 Tab PO DAILY 09/28/08 Active [Nyquil] NEEDED 09/28/08 Active Tramadol Hcl 50 Mg PO TWICE A DAY 04/04/14 Active Aspirin 81 Mg PO DAILY 2 Qty 04/04/14 06/03/14 Discontinued Acetaminophen 325 Mg PO NEEDED PRN PAIN 2 Qty 04/04/14 Active Pantoprazole Sodium 40 Mg PO DAILY 30 Qty 1 PO Q D 04/04/14 06/03/14 Discontinued Levofloxacin 500 Mg PO DAILY 7 Qty 04/04/14 06/03/14 Discontinued Metronidazole 500 Mg PO THREE TIMES A DAY 30 Qty 1 PO TID 04/04/1406/03 Discontinued Promethazine Hcl 25 Mg PO Every 6 Hours For NAUSEA &/OR VOMITING 20 Qty 04/04/14 06/03/14 Discontinued Hydrocodone Bit/Acetaminophen 1 Tab PO EVERY 4 HOURS For PAIN 15 Qty 06/03/14 Discontinued Aspirin 0.5 Tab PO DAILY 30 Days 06/03/14 Active Pantoprazole Sodium 40 Mg PO BEFORE BREAKFAST For GERD 30 Qty Take 1 tablet, by mouth, one time a day before breakfast. 06/03/14 Active Sucralfate 1 Gm PO Befor Lunch/Dinner 30 Qty BEDTIME). 06/03/14 Active Social History Social History Problem Response Recorded Date/Time Smoking Status Never smoker 04/04/2014 11:18am Hx Substance Use No 06/02/2014 11:34am Hx Alcohol Use Y WINE DAILY 06/02/2014 11:34am Has the pt used tobacco in the last 12 months No 06/02/2014 2:57pm Hospital Discharge Instructions Instructions: Care Instructions: Reason for Hospitalization: Chest pain I was in the hospital because (patient own words): PT STATES "YESTERDAY I HAD THIS CHEST PAIN AND KEPT ME AWAKE AT NIGHT NO BE Discharge Diet: Regular Discharge Activity: As tolerated Follow Up Appointments: Dr León this week Patient Instructions: If Protonix too expensive, may use Prilosec OTC (also known as omeprazole) Condition at time of discharge: Good If you have any questions or concerns regarding the tests that you had done at the hospital or if you have any results that are pending, please contact your primary care provider. Leave incision open to air. Durable Medical Equipment: NA Notify Physician If: fever 101.5 or higher redness or drainage from the incisions increasing abdominal pain Condition at time of discharge: Good Plan of Care Discharge Date 06/03/14 2:20pm Disposition 01 DISCHARGED HOME, SELF-CARE Instructions/Education Provided DI for Chest Pain Prescriptions See Medications Section Functional Status Query Response Date Recorded Physical Hygiene Self June 03, 2014 1:44pm Disabilities Visual April 04, 2014 11:18am Devices Used Glasses June 03, 2014 1:44pm Dressing Self June 03, 2014 1:44pm Ambulation Self April 04, 2014 11:18am Diet Self June 03, 2014 1:44pm Mental Status Alert April 04, 2014 11:18am Disabilities Visual April 04, 2014 11:18am Devices Used Glasses June 03, 2014 1:44pm Physical Hygiene Self June 03, 2014 1:44pm Dressing Self June 03, 2014 1:44pm Ambulation Self April 04, 2014 11:18am Diet Self June 03, 2014 1:44pm Allergies, Adverse Reactions, Alerts Allergen Type Severity Reaction Status Last Updated Morphine Allergy Mild HALLUCINATIONS Active 06/02/14 Immunizations Name Given Type Hx Influenza Vaccination Y FALL 2012 Historical Hx Pneumococcal Vaccination Y MORE RECENT THAN 2001 Historical Hx Influenza Vaccination Y FALL 2012 Historical Vital Signs Acute Vital Signs Vital Response Date/Time Temperature (Fahrenheit) 96.6 deg F (96.8 - 99.1) Temperature (Calculated Celsius) 35.12431 degrees C (36.0 - 37.3) Temperature Source Oral Pulse Rate (adult) 64 bpm (60 - 100) Respiratory Rate 18 breaths/min (10 - 20) O2 Sat by Pulse Oximetry 97 % (90 - 100) Oxygen Delivery Method Room Air Blood Pressure 151/85 mm Hg Blood Pressure Source Automatic Cuff Height 5 ft 8.5 in Weight 180 lb Body Mass Index 27.0 kg/m^2 Results Test Source Date Result Interp. Ref. Range Comments Activated Partial Thromboplast Time June 02, 2014 11:28am 28.8 SEC N 24-36 Alanine Aminotransferase (ALT/SGPT) June 02, 2014 11:28am 29 U/L N 21-72 Albumin June 02, 2014 11:28am 4.0 G/DL N 3.5-5.0 Albumin/Globulin Ratio June 02, 2014 11:28am 1.5 RATIO N 1.1-2.2 Alkaline Phosphatase June 02, 2014 11:28am 102 U/L N 38-126 Amylase Level April 04, 2014 11:15am 102 U/L N 30-110 Anion Gap June 03, 2014 12:25am 8 MEQ/L N 5-15 Aspartate Amino Transf (AST/SGOT) June 02, 2014 11:28am 25 U/L N 17 -59 BUN/Creatinine Ratio June 03, 2014 12:25am 20 RATIO N 6-26 Basophils # (Auto) June 03, 2014 12:25am 0.0 T/MM3 N 0-0.2 Basophils (%) (Auto) June 03, 2014 12:25am 0.3 % N 0-2 Blood Urea Nitrogen June 03, 2014 12:25am 39.0 MG/DL H 9-20 Calcium Level June 03, 2014 12:25am 8.9 MG/DL N 8.4-10.2 Calculated Osmolality June 03, 2014 12:25am 275 MOSM/KG N 261-280 Carbon Dioxide Level June 03, 2014 12:25am 25 MEQ/L N 22-30 Chemistry Specimen Hemolysis June 03, 2014 12:25am < 15 0-25 0- 25: No Hemolysis.26-70: Slight Hemolysis - can falsely elevate K and Urine Protein. 71-285: Moderate Hemolysis - can falsely elevate K, Troponin I, CA 19-9, PTH, CSF GLucose, and Urine Protein, and can falsely decrease Phenytoin. 286-999: Gross Hemolysis - can falsely elevate K, Troponin I, CA 19-9, PTH, CSF Glucose, and Urine Protine, and can falsely decrease Phenytoin. Recommend specimen recollection. Chloride Level June 03, 2014 12:25am 105 MEQ/L N 98-107 Creatinine June 03, 2014 12:25am 2.0 MG/DL H 0.8-1.5 D-Dimer June 02, 2014 11:28am 178 NG/ML N 0-224 <224 NG/ML= PRESUMPTIVE NEGATIVE FOR PE OR DVT>224 NG/ML=ADDITIONAL EVALUATION FOR PE OR DVT RECOMMENDED Eosinophils # (Auto) June 03, 2014 12:25am 0.2 T/MM3 N 0-0.5 Eosinophils (%) (Auto) June 03, 2014 12:25am 2.8 % N 0-4 Globulin June 02, 2014 11:28am 2.7 G/DL N 2.4-3.6 Glomerular Filtration Rate Calc June 03, 2014 12:25am 32 - Glucometer June 02, 2014 11:25am 108 mg/dL N 75-110 Glucose Level June 03, 2014 12:25am 96 MG/DL N 75-110 Group A Streptococcus Screen September 20, 2010 6:10pm Negative - Strep culture confirmation to follow Hematocrit June 03, 2014 12:25am 37.7 % L 41-53 Hemoglobin June 03, 2014 12:25am 12.5 GM/DL L 13.5-17.5 Icterus Index June 03, 2014 12:25am < 2 0-7 Immature Granulocyte # (Auto) June 03, 2014 12:25am 0.01 T/MM3 N 0.00-0.03 Immature Granulocyte % (Auto) June 03, 2014 12:25am 0.1 % N 0.0- 0.5 Lab Scanned Report September 30, 2012 6:42pm LAB TEST FORM REQUEST [id number] - Lipase April 04, 2014 11:15am 79 U/L N 23-300 Lymphocytes # (Auto) June 03, 2014 12:25am 0.8 T/MM3 L 1-4.8 Lymphocytes (%) (Auto) June 03, 2014 12:25am 11.2 % L 23-45 Magnesium Level June 02, 2014 11:28am 2.0 MG/DL N 1.6-2.3 Mean Corpuscular Hemoglobin June 03, 2014 12:25am 32.0 UUG N 26-34 Mean Corpuscular Hemoglobin Concent June 03, 2014 12:25am 33.2 GM/DL N 31-37 Mean Corpuscular Volume June 03, 2014 12:25am 96.4 UM3 N 80-100 Mean Platelet Volume June 03, 2014 12:25am 10.2 UM3 N 9.4-12.4 Monocytes # (Auto) June 03, 2014 12:25am 0.8 T/MM3 N 0-0.8 Monocytes (%) (Auto) June 03, 2014 12:25am 12.2 % H 0-9.0 QX-Gee-B-Type Natriuretic Peptide June 02, 2014 11:28am 1640 PG/ML H 0-175 Rule in cut points: <50 years old=450; 50-75 years old=900; >75 years old=1800; When utilizing ProBNP rule-in cut points, adjustment for impaired renal function is typically not required. Neutrophils # (Auto) June 03, 2014 12:25am 5.0 T/MM3 N 1.8-7.7 Neutrophils (%) (Auto) June 03, 2014 12:25am 73.4 % H 33-66 Platelet Count June 03, 2014 12:25am 258 T/MM3 N 130-400 Potassium Level June 03, 2014 12:25am 4.8 MEQ/L N 3.6-5 Prealbumin June 02, 2014 11:28am 24.0 MG/DL N 17.6-36.0 COMMENT BLOOD IN LAB Prothromb Time International Ratio June 02, 2014 11:28am 0.99 N 0.81-1.09 THERAPUTIC RANGE=2.00-3.00 FOR ANTI-THROMBOSIS THERAPUTIC RANGE=2.50 -3.50 FOR IMPLANTED VALVE RDW Standard Deviation June 03, 2014 12:25am 42.0 FL N 36.9-50.2 Red Blood Count June 03, 2014 12:25am 3.91 M/MM3 L 4.50-5.90 Sodium Level June 03, 2014 12:25am 138 MEQ/L N 134-144 Thyroid Stimulating Hormone (TSH) June 02, 2014 11:28am 1.11 MIU/L N 0.47-4.68 Total Bilirubin June 02, 2014 11:28am 0.50 MG/DL N 0.20-1.30 Total Protein June 02, 2014 11:28am 6.7 G/DL N 6.3-8.2 Troponin I June 03, 2014 12:25am 0.062 ng/ml N 0-0.12 Turbidity June 03, 2014 12:25am < 20 0-20 Urine Bacteria June 02, 2014 11:59pm 2+ H - Has specimen been collected/obtained? Y Urine Bilirubin June 02, 2014 11:59pm Negative - Has specimen been collected/obtained? Y Urine Blood June 02, 2014 11:59pm 1+ H - Has specimen been collected/obtained? Y Urine Collection Type June 02, 2014 11:59pm Ribeiro indwelling - Has specimen been collected/obtained? Y Urine Color June 02, 2014 11:59pm Yellow - Has specimen been collected/obtained? Y Urine Culture Indicated June 02, 2014 11:59pm Cult reflexed &setup - Has specimen been collected/obtained? Y Urine Glucose (UA) June 02, 2014 11:59pm Negative - Has specimen been collected/obtained? Y Urine Ketones June 02, 2014 11:59pm Negative - Has specimen been collected/obtained? Y Urine Leukocyte Esterase June 02, 2014 11:59pm 3+ H - Has specimen been collected/obtained? Y Urine Nitrite June 02, 2014 11:59pm Positive H - Has specimen been collected/obtained? Y Urine Protein June 02, 2014 11:59pm Negative - Has specimen been collected/obtained? Y Urine RBC June 02, 2014 11:59pm 1-3 /HPF - Has specimen been collected/obtained? Y Urine Specific Calypso June 02, 2014 11:59pm 1.010 L - Has specimen been collected/obtained? Y Urine Turbidity June 02, 2014 11:59pm Slt cldy - Has specimen been collected/obtained? Y Urine Urobilinogen June 02, 2014 11:59pm 0.2 EU/DL - Has specimen been collected/obtained? Y Urine WBC June 02, 2014 11:59pm 30-50 /HPF H - Has specimen been collected/obtained? Y Urine pH June 02, 2014 11:59pm 6.0 - Has specimen been collected /obtained? Y Vitamin B12 Level June 02, 2014 11:28am 332 PG/ML N 239-931 COMMENT BLOOD IN LAB White Blood Count June 03, 2014 12:25am 6.9 T/MM3 N 4.5-11.0 Group A Streptococcus Culture Throat September 20, 2010 6:33pm Urine Culture Urine, Suprapubic April 04, 2014 11:51am Escherichia Coli Name: CLEMENCIA BENITES Unit #: [id number] : 1930 Sex: M Loc / Svc: [facility] [place]: 06/02/14 Signed Report #: [id number] DIAGNOSTIC IMAGING REPORT TYPE OF EXAM: CHEST 1 VIEW Dictated By: JULIET PATHAK MD INDICATION: ITS.REASON: CHEST PAIN CHEST 1 VIEW: Comparison: Acute abdomen series dated April 04, 2014 FINDINGS: The lungs are clear. There is no abnormal airspace opacity, pleural effusion or pneumothorax identified. The heart size, pulmonary vasculature and mediastinum are within normal limits. Left shoulder prosthesis. IMPRESSION: No acute cardiopulmonary abnormality. . Procedures Procedure Status Date Provider(s) THER/PROPH/DIAG INJ IV PUSH completed 04/04/14 TX/PRO/DX INJ NEW DRUG ADDON completed 04/04/14 HYDRATE IV INFUSION ADD-ON completed 04/04/14 Encounters Encounter Location Date/Time Discharged Inpatient [facility] 06/02/14 1:26pm Departed Emergency Room [facility] 04/04/14 10:29am Recent Diagnosis Chest pain History of hiatal hernia History of prostate cancer Chest pain
--- OUTSIDE RECORDS SUMMARY | 2017-01-16 06:09 | XMS REPORT | Referral Summary ---
Author Author [facility] Organization [facility] Address Unknown Phone Unavailable Care Team Providers Care Accounts Manager Name Role Phone Fiona León Primary Care Physician [phone] Encounter VC Date(s): 06/18/16 - 06/18/16 [facility], [address] [place] [address] Discharge Disposition: 01-Home or Self Care Attending Physician: Reynaldo Mitchell APRN Admitting Physician: Reynaldo Mitchell APRN Vital Signs Most recent to 1 oldest [Reference Range]: Temperature Tympanic 36.6 degC [36.6-38.1 degC] (06/18/16 2:32 PM) Peripheral Pulse 71 bpm Rate [60-100 bpm] (06/18/16 2:32 PM) Respiratory Rate 14 br/min [14-20 br/min] (06/18/16 2:32 PM) Blood Pressure 138/62 mmHg [90-140/60-90 mmHg] (06/18/16 2:32 PM) SpO2 95 % (06/18/16 2:32 PM) Problem List Condition Effective Dates Status Health [...] Substance Reaction Severity Status morphine Active Medications amiodarone 200 mg oral tablet 200 mg 1 tabs, Oral, BID, # 30 tabs, 6 Refill(s), Pharmacy: [facility] , 1 tabs Oral BID Start Date: 05/12/16 Status: Ordered amLODIPine 5 mg oral tablet 5 mg 1 tabs, Oral, Daily, # 90 tabs, 1 Refill(s), Pharmacy: [facility] , 1 tabs Oral Daily Start Date: 04/30/16 Status: Ordered aspirin 325 mg oral tablet 325 mg 1 tabs, Oral, Daily, # 30 tabs, 0 Refill(s) Start Date: 05/07/16 Status: Ordered Biotene Mouthwash 0 Refill(s) Start [...] BID, # 180 Each, 1 Refill(s), Pharmacy: [facility] , 1 tabs Oral BID Start Date: 04/30/16 Status: Ordered furosemide 20 mg oral tablet 20 mg 1 tabs, Oral, Daily, 0 Refill(s) Start Date: 05/27/16 Status: Ordered Melatonin Bedtime (once a day), 0 Refill(s) Start Date: 04/20/16 Status: Ordered Metamucil 1.7 g, Oral, Daily, 0 Refill(s) Start Date: 03/18/15 Status: Ordered MiraLax oral powder for reconstitution 17 g, Oral, Daily, dissolve in water before taking, # 255 g, 0 Refill(s), other reason (Rx) Start Date: 03/18/15 Status: Ordered propylthiouracil 50 mg oral tablet 100 mg 2 tabs, Oral, QID, 0 Refill(s) Start Date: 04/23/16 Status: Ordered Tylenol Extra Strength 500 mg oral tablet 500 mg 1 tabs, Oral, q4hr, as needed for pain, # 60 tabs, 0 Refill(s) Start Date: 01/03/16 Status: Ordered Results No data available for [...] Never smoker; Type: Cigarettes Assessment and Plan No data available for this section
--- NOTE | 2017-01-16 06:57 | ERPDOC ---
Departure Disposition Decision Date: Jan 16, 2017 Disposition Decision Time: 07:30 Disposition: 02 TO [facility] Impression Impression Impression: Primary Impression: Hyperkalemia Additional Impressions: Acute on chronic kidney failure Elevated troponin Dehydration SBO (small bowel obstruction) Severity: Severe Condition: Stabilized for Transport Seen By: Physician only Referrals: CHEKO SIDDIQUI MD (Family) Problems/Meds/Labs Reviewed?: Yes Medications reviewed and manag: Yes Follow up care ordered?: Yes Mental Status: Alert, Oriented Critical Care Note Total Time (mins): 42 Critical Care Spent: [id number] care of pt, Reviewing test results, Discuss the case w/staff, Documenting the MR, Discussion w/ family/DPOA During this visit the pt was: At Risk of Deterioration HPI - General Medical General Chief Complaint: Abdominal Pain Stated Complaint: ABD PAIN Time Seen by Provider: 06:10 Source: patient, family Exam Limitations: no limitations HPI - General Medical Initial Comments 86-year-old male presents to the emergency department with a chief complaint of abdominal pain and nausea and vomiting. Patient noted onset of symptoms one day ago. Patient does also note that he did have a mechanical fall yesterday and was seen and evaluated by his primary care physician with a negative CT scan of the head. Patient is on Eliquis. Patient notes generalized abdominal discomfort which improved with fentanyl given by EMS prior to arrival to the emergency department. Patient denies radiation. Currently he is having mild generalized abdominal discomfort. Patient denies any trauma, travel, poorly prepared food or recent antibiotic use. 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 Patient does note approximately 3 -4 episodes of nonbloody nonbilious emesis in the last 24 hours. Patient denies any other complaints or associated symptoms. Occurred At: home Onset: Constant Allergies: Coded Allergies: morphine (Unverified Allergy, Mild, HALLUCINATIONS, 01/16/17) Past History Past Medical History Metabolic: cancer, hypertension Cardiac: A-fib, CHF GI: other Male: other Surgical History General: tonsils Reproductive/: other Family History Family PMH: FOUND: cancer Vaccines Hx Influenza Vaccination: Yes (UNSURE) Hx Pneumococcal Vaccination: Yes (MORE RECENT THAN 2001) Social History Smoking Status: Never smoker Substance Use Type: does not use Alcohol Intake: none Sexuality: female partner Review of Systems Constitutional Constitutional: DENIES: chills, fever Eyes General: DENIES: erythema, exudate Lids/Accessories: DENIES: erythema, swelling Vision: DENIES: acuity, blurring ENMT Ears: DENIES: drainage, erythema Hearing: DENIES: hearing loss Balance: DENIES: ataxia, falling to one side Sinuses: DENIES: congestion, pain Nose: DENIES: nosebleeds, pain Mouth/Throat: DENIES: painful swallowing, sore throat Teeth: DENIES: pain Jaw: DENIES: pain Cardiovascular Cardiac: DENIES: chest pain, dyspnea on exertion Rhythm/Rate: DENIES: irregular beat, palpitations Vascular: DENIES: pedal edema, unilateral swelling Pulmonary Respiratory: DENIES: cough, dyspnea, pleuritic chest pain, sputum GI Upper Abdomen: nausea, pain, vomiting Lower Abdomen: pain, DENIES: diarrhea General: DENIES: dysuria, frequency Musculoskeletal General: DENIES: joint pain, tenderness Integumentary Skin: DENIES: itching, rash Neurological General: DENIES: headache, numbness, weakness Psychiatric Psychiatric: DENIES: emotional instability, suicidal ideation/attempt Endocrine Endocrine: DENIES: polydipsia, polyphagia Hematologic/Lymphatic Hematologic/Lymphatic: DENIES: frequent nosebleeds, lymphadenopathy Allergic/Immunological Allergic/Immunoligical: DENIES: allergic reactions, hives Physical Exam General General Nourishment: well nourished, well developed, appears stated age, no acute distress, adult General Body Habitus: well groomed Vitals and Pain First Documented Vital Signs Date Time Temp Pulse Resp B/P Pulse Ox O2 Delivery O2 Flow Rate FiO2 01/16/17 06:07 97.8 68 16 160/72 97 Room Air Weight: Kilograms: 80.000 Height (feet): 5 Height (inches): 9.00 Triage Pain Scale: RN VS reviewed by Provider: Yes Normal Exams: Head: Normocephalic w/o trauma Eyes: Pupils are PERRLA w/ EOMI, No scleral icterus, irritation, or foreign bodies noted ENMT: No facial trauma, nasal exudates, pharyngeal erythema, or exudates are noted Dental: No fractured, loose, or missing teeth noted Neck: Full range of motion, without adenopathy, JVD, bruits or thyromegaly Chest/Resp: Clear all sampson, with good airflow, and symmetry bilaterally CV: Regular rate and rhythm, without murmur or gallop, Pulses 2+ all extremities, capillary refill, <2 seconds all ext., no pedal edema noted Abdomen: Bowel sounds positive, non-distended, no hepatosplenomegaly, masses or bruits noted Lymphatic: No lymphadenopathy, or lymphedema noted Musculoskeletal: No tenderness, or deformity noted, good range of motion, all extremities Integumentary: No rashes, hives, or bruising noted, hair and nails, without abnormality Neurologic: Patient is alert, and oriented, cranial nerves, motor/sensory/ cerebellar, exams w/o gross deficits, to observation Psychiatric: Patient exhibits, appropriate attention, emotion and affect Abdomen (brief) Abdominal Brief: FOUND: soft Comments Mild generalized tenderness to palpation. no rebound or guarding. NO CVAT. Multiple hernias noted without overlying erythema or focal tenderness. Differential Diagnoses Considering: Medication Effect, Metabolic, UTI, Other (dehydration) Progress Results/Orders Orders Procedure Category Date Status Time Cbc W/Auto LAB 01/16/17 Complete Diff-Reflex Manual Cmp - Comprehensive LAB 01/16/17 Complete Metabolic Lipase LAB 01/16/17 Complete Lactate - Lactic Acid LAB 01/16/17 Complete Lactate - Lactic Acid LAB 01/16/17 Logged 10:59 Troponin I W LAB 01/16/17 Complete Hemolysis Index EKG EKG 01/16/17 Taken UA, LAB 01/16/17 Complete Dip&Micro(Complete) & 06:51 Ct Head W/O Contrast CT 01/16/17 Taken 07:16 Ct Cervical Spine W/O CT 01/16/17 Taken Contrast 07:[address] 01/16/17 Taken Chest/Abdomen/Pelvis 07:16 Urine Culture BERRY 01/16/17 In Process 07:20 Blood Culture BERRY 01/16/17 In Process 07:31 Procalcitonin LAB 01/16/17 Complete 07:31 Calcium Gluconate PHA 01/16/17 Complete (Calcium Gluconate) 08:15 D5w (D5w) W/Sodium PHA 01/16/17 In Process Bicarbonate 08:15 Insulin Regular PHA 01/16/17 Complete (Novolin R) 08:15 Dextrose 50% Pfs PHA 01/16/17 Complete (D50w) 08:15 Ondansetron Inj PHA 01/16/17 Complete (Zofran) 08:45 Aztreonam (Azactam) PHA 01/16/17 In Process 09:00 Lab Results Laboratory Tests Test 01/16/17 06:51 01/16/17 06:53 01/16/17 06:59 Urine Collection Type Ribeiro indwelling Urine Color Yellow Urine Turbidity Cloudy Urine pH 7.0 Urine Specific [place] <=1.005 Urine Protein Trace Urine Glucose (UA) Negative Urine Ketones Negative Urine Blood 3+ Urine Nitrite Negative Urine Bilirubin Negative Urine Urobilinogen 0.2EU/DL Urine Leukocyte Esterase 3+ Urine RBC 30-50/HPF Urine WBC 50-200/HPF Urine Squamous Epithelial Cells None seen Urine Bacteria 3+ Urine Culture Indicated Cult reflexed &setup Procalcitonin 0.38NG/ML White Blood Count 13.5T/MM3 Red Blood Count 3.69M/MM3 Hemoglobin 12.0GM/DL Hematocrit 37.3% Mean Corpuscular Volume 101.1UM3 Mean Corpuscular Hemoglobin 32.5UUG Mean Corpuscular Hemoglobin Concent 32.2GM/DL RDW Standard Deviation 47.1FL Platelet Count 325T/MM3 Mean Platelet Volume 9.9UM3 Immature Granulocyte % (Auto) % Neutrophils (%) (Auto) % Lymphocytes (%) (Auto) % Monocytes (%) (Auto) % Eosinophils (%) (Auto) % Basophils (%) (Auto) % Absolute Immature Granulocyte (auto T/MM3 Absolute Neutrophils (auto) T/MM3 Absolute Lymphocytes (auto) T/MM3 Absolute Monocytes (auto) T/MM3 Absolute Eosinophils (auto) T/MM3 Absolute Basophils (auto) T/MM3 Neutrophils % (Manual) 89.0% Band Neutrophils % 6.0% Monocytes % (Manual) 5.0% Absolute Neutrophils (Manual) 12.0T/MM3 Band Neutrophils # 0.8T/MM3 Monocytes # (Manual) 0.7T/MM3 Poikilocytosis 1+ Anisocytosis Macrocytosis 1+ Red Cell Morphology Comment Abnormal Turbidity < 20 Sodium Level 143MEQ/L Potassium Level 6.1MEQ/L Chloride Level 107MEQ/L Carbon Dioxide Level 22MEQ/L Anion Gap 14MEQ/L Blood Urea Nitrogen 82.0MG/DL Creatinine 4.4MG/DL Glomerular Filtration Rate Calc 13 BUN/Creatinine Ratio 19RATIO Glucose Level 144MG/DL Calculated Osmolality 303MOSM/KG Calcium Level 9.1MG/DL Total Bilirubin 0.70MG/DL Icterus Index < 2 Aspartate Amino Transf (AST/SGOT) 70U/L Alanine Aminotransferase (ALT/SGPT) 90U/L Alkaline Phosphatase 124U/L Troponin I 0.104ng/ml Total Protein 6.9G/DL Albumin 3.8G/DL Globulin 3.1G/DL Albumin/Globulin Ratio 1.2RATIO Lipase 101U/L Plasma Lactate Pending Chemistry Specimen Hemolysis < 15 Medications Current ED Medications Calcium Gluconate 1000 mg 1,000 mg O ONCE IV Last administered on 01/16/17 08 :30; Start 01/16/17 at 08:15; Stop 01/16/17 at 08:16; Status DC Sodium Bicarbonate/ Dextrose/Water (Sodium Bicarbonate Vial/ D5W) 1,050 ml @ 125 mls/hr Q8H24M IV Last administered on 01/16/17 08:51; Start 01/16/17 at 08 :15 Insulin Human Regular (Novolin R) 10 unit O ONCE IV Last administered on 08:50; Start 01/16/17 at 08:15; Stop 01/16/17 at 08:16; Status DC Dextrose (D50w) 50 ml O ONCE IV Last administered on 01/16/17 08:45; Start at 08:15; Stop 01/16/17 at 08:16; Status DC Ondansetron HCl 4 mg 4 mg O ONCE IV Last administered on 01/16/17 08:44; Start 01/16/17 at 08:45; Stop 01/16/17 at 08:46; Status DC Aztreonam/Sodium Chloride (Azactam/NS) 100 ml @ 200 mls/hr O ONCE IV Last administered on 01/16/17 09:05; Start 01/16/17 at 09:00; Stop 01/16/17 at 09:29 Progress Progress Labs/imaging were discussed in detail with the patient and family and questions are answered. Patient is given gentle IV hydration. Patient is started on Azactam intravenously for treatment of potential urinary tract infection. Patient is given calcium gluconate 1 amp, 10 units of regular insulin and 1 amp of dextrose intravenously. Patient is given 1 amp of sodium bicarbonate. Kayexalate will be held until we are sure the patient is not obstructed. Patient is not experiencing any chest discomfort. Elevated troponin is most likely secondary to the elevated creatinine / BUN. Patient is discussed with Dr. Forbes who recommends transfer to [place] as Nephrology is not available at [facility]. Patient would like to be transferred to [facility] possible. Patient is accepted by Dr. Nunez of [facility] for further evaluation and treatment. Patient does take 325 mg of ASA on a daily basis and has this prior to arrival to the ED. risk versus benefit of transfer is discussed in detail with the patient and family and questions are answered. Patient is stable for transfer to [facility] at this time. Patient is accepted into the intensive care unit at [facility]. 42 minutes of critical care time was assessed to the patient due to the potassium cocktail that was given and the elevated troponin. Patient required repeated assessment at bedside, complex medical decision-making, and had potential for decompensation. EKG EKG : Rate: 60-100 Rhythm: sinus Cascade: normal QRS: normal Intervals: normal ST/T: non-specific changes Interpreted by: signing physician CT CT : CT: Head no contrast Interpretation: Normal (CT C-Spine: No fracture. CT CHEST/ABD/PELVIS: Chest negative. Small bowel obstruction. Sonja due to complex right inguinal hernia with concern for incarceration. Larger of the muscular of the anterior left hip raising the concern for possible bleeding into the muscle. No fracture.), Faxed Report RAGHAVENDRA SINGH DO Jan 16, 2017 06:57 fracture.), Faxed Report RAGHAVENDRA SINGH DO Jan 16, 2017 06:57
--- NOTE | 2017-01-16 07:00 | NUR ---
PT STATUS PT CONTINUES TO DENY NAUSEA AND REPORTS ABDOMINAL DISCOMFORT IS ONLY MILD, DOES NOT WANT ANY FURTHER PAIN MEDICATIONS AT THIS TIME. PT DOES NOT APPEAR TO BE IN ANY ACUTE DISTRESS. PT'S IN ROOM WITH PT AND CALL LIGHT IS IN REACH.
[2017-01-16] MEDS ORDERED: DOCU-175 PO (07:02)
[2017-01-16 07:03] LABS: HCT - HEMATOCRIT 37.3 % (41-53); MEAN CORPUSCULAR HGB 32.5 UUG (26-34); MEAN CORPUSCULAR HGB CONC(MCHC 32.2 GM/DL (31-37); MEAN CORPUSCULAR VOLUME 101.1 UM3 (80-100); MEAN PLATELET VOLUME 9.9 UM3 (9.4-12.4); RED BLOOD COUNT 3.69 M/MM3 (4.50-5.90); WBC - WHITE BLOOD COUNT 13.5 T/MM3 (4.5-11.0)
[2017-01-16] MEDS ORDERED: [UNRECOGNIZED DRUG - OTHER] PO (07:03)
[2017-01-16 07:05] LABS: BLOOD, URINE 3+ (NEGATIVE); COLOR,URINE YELLOW (YELLOW); LEUKOCYTE ESTERASE ,URINE 3+ (NEGATIVE); NITRITE,URINE NEGATIVE (NEGATIVE); UROBILINOGEN,URINE 0.2 EU/DL (NORMAL)
[2017-01-16 07:14] LABS: ALBUMIN 3.8 G/DL (3.5-5.0); ALBUMIN/GLOBULIN RATIO 1.2 RATIO (1.1-2.2); ALKALINE PHOSPHATASE 124 U/L (38-126); ALT (SGPT) 90 U/L (21-72); ANION GAP 14 MEQ/L (5-15); AST (SGOT) 70 U/L (17-59); BUN/CREATININE RATIO 19 RATIO (6-26); CALCIUM 9.1 MG/DL (8.4-10.2); CHLORIDE 107 MEQ/L (98-107); CO2 - CARBON DIOXIDE 22 MEQ/L (22-30); CREATININE 4.4 MG/DL (0.8-1.5); GLOMERULAR FILTRATION RATE 13; GLUCOSE 144 MG/DL (75-110); LACTATE - LACTIC ACID 0.7 MMOL/L (0.6-2.2); LIPASE 101 U/L (23-300); SODIUM 143 MEQ/L (134-144); TOTAL PROTEIN 6.9 G/DL (6.3-8.2)
[2017-01-16 07:19] LABS: WBC,URINE 50-200 /HPF (0-5)
[2017-01-16 07:20] LABS: BACTERIA,URINE 3+ (NEGATIVE); RBC,URINE 30-50 /HPF (0-3); SQUAMOUS EPITHELIAL CELL,UR NONE SEEN
--- OUTSIDE RECORDS SUMMARY | 2017-01-16 07:31 | XMS REPORT | Continuity of Care Document ---
Author Author [facility] Organization [facility] Address Unknown Phone Unavailable Support Name Relationship Address Phone CHEKO SIDDIQUI MD Caregiver [address] [address] ELIAN RINCON MD Caregiver [address] [place] [phone] JAVAD BENITES Next Of Kin [address] [facility] [address] [place], [place] [id number] Insurance Providers Payer Name Policy Number Subscriber Name Relationship Medicare [id number] Clemencia Benites 18 Self [place] [id number] Clemencia Benites 17 Self Advance Directives Directive [...] F (96.8 - 99.1) Temperature (Calculated Celsius) 36.42728 degrees C (36.0 - 37.3) Pulse Rate [...] BAGHas specimen been collected/obtained? Y Urine Specific [place] April 04, 2014 11:37am 1.015 - COMMENT [...] 30, 2012 6:42pm LAB TEST FORM REQUEST [id number] - Turbidity April 04, 2014 11:15am < [...] Encounters Encounter Location Date/Time Departed Emergency Room [facility] 04/04/14 10:29am Recent Diagnosis
--- OUTSIDE RECORDS SUMMARY | 2017-01-16 07:32 | XMS REPORT | Continuity of Care Document ---
Author Author [facility] Organization [facility] Address Unknown Phone Unavailable Support Name Relationship Address Phone BRANDON HERRERA MD Caregiver [address] [place] [address] [place] [address] CHEKO LEÓN MD Caregiver [address] [place] [address] ELIAN RINCON MD Caregiver [address] [place] [address] [place] [phone] JAVAD BENITES Next Of Kin [address] [facility] [address] [place] [address] Insurance Providers Payer Name Policy Number Subscriber Name Relationship Medicare [id number] Clemencia Benites 18 Self [place] [id number] Clemencia Benites 18 Self Advance Directives Directive [...] F (96.8 - 99.1) Temperature (Calculated Celsius) 35.16274 degrees C (36.0 - 37.3) Temperature Source [...] 30, 2012 6:42pm LAB TEST FORM REQUEST [id number] - Lipase April 04, 2014 11:15am 79 [...] 03, 2014 12:25am 12.2 % H 0-9.0 CO-Rtb-N-Type Natriuretic Peptide June 02, 2014 11:28am 1640 [...] Has specimen been collected/obtained? Y Urine Specific [place] June 02, 2014 11:59pm 1.010 L - [...] Escherichia Coli Name: CLEMENCIA BENITES Unit #: [id number] : 1930 Sex: M [place] [facility] [place]02[place]14 Signed Report #: [id number] DIAGNOSTIC IMAGING REPORT TYPE OF EXAM: CHEST [...] 04/04/14 Encounters Encounter Location Date/Time Discharged Inpatient [facility] 06/02/14 1:26pm Departed Emergency Room [facility] 04/04/14 10:29am Recent Diagnosis Chest pain History of hiatal hernia History of prostate cancer Chest pain
--- OUTSIDE RECORDS SUMMARY | 2017-01-16 07:32 | XMS REPORT | Continuity of Care Document ---
Author Author [facility] Organization [facility] Address Unknown Phone Unavailable Allergies Active Description [...] 5.0-8.0 Protein Pos 1+ NA Negative Specific [place] 1.020 NA 1.003-1.030 UA Collection type Other NA Urobilinogen 0.2 mg/dL <=1.0 Urine Microscopic - 03/27/16 10:22 Bacteria Numerous NA Epithelial Cells 2 /hpf RBC, Urine 2 /hpf 0-2 WBC, Urine 20 /hpf 0-4 Encounters ACCT No. Visit Date/Time Discharge Status Pt. Type Provider Facility Loc./Unit Complaint [id number] 08/29/2013 09:29:00 08/29/2013 23 :59:59 [facility] Outpatient [id number] 07/19/2013 14:11:00 07/19/2013 23 :59:59 [facility] Outpatient
[2017-01-16 07:34] LABS: POTASSIUM 6.1 MEQ/L (3.6-5)
--- NOTE | 2017-01-16 07:35 | NUR ---
CRITICAL LAB ELEVATED POTASSIUM AND BUN REPORTED TO DR SINGH
--- NOTE | 2017-01-16 07:40 | NUR ---
CT PT TO CT.
[2017-01-16 07:44] LABS: BAND NEUTROPHILS # 0.8 T/MM3; MONOCYTES # (MANUAL) 0.7 T/MM3 (0-0.8); TOTAL CELLS COUNTED 100 %
[2017-01-16 07:45] LABS: POIKILOCYTOSIS 1+
--- NOTE | 2017-01-16 07:58 | NUR ---
CT PT RETURNED FROM CT PER COT.
[2017-01-16] MEDS ORDERED: CALCIUM GLUCONATE 1000mg/10ml INJECTION IV ONE (08:15)
[2017-01-16] MEDS ORDERED: DEXTROSE 50% SYRINGE 50ml (Eq. 1 AMP) IV ONE (08:15)
[2017-01-16] MEDS ORDERED: INSULIN REGULAR 100 UNIT/ML IV ONE (08:15)
[2017-01-16] MEDS ORDERED: SODIUM BICARBONATE 50 MEQ in D5W 1,000 ML IV SCH (08:15)
[2017-01-16] MEDS ORDERED: ONDANSETRON 4mg/2ml INJECTION IV ONE (08:45)
--- NOTE | 2017-01-16 08:58 | NUR ---
911 EMS CALLED FOR TRANSPORT.
[2017-01-16] MEDS ORDERED: AZTREONAM 1 G in NORMAL SALINE 100 ML IV ONE (09:00)
--- NOTE | 2017-01-16 09:04 | NUR ---
PROVIDER DR. SINGH IN ROOM WITH PT.
[2017-01-16 09:15] VITALS: BP 146/72; PULSE 74; RESP 16; TEMP 97.6; O2SAT 97
--- NOTE | 2017-01-16 09:15 | NUR ---
DEPART WITH ED PT DEPARTS WITH ED PER CART. IS TRANSPORTED WITH PT, PT'S CANE CARRIED BY EMS.
--- NOTE | 2017-01-16 09:20 | NUR ---
REPORT PT REPORT CALLED TO HARSHA FELTON AT [facility].
--- NOTE | 2017-01-17 09:39 | DI ---
Indication: ITS.REASON: abd pain, nv, hx hernia multiple PROCEDURE: CT CHEST/ABDOMEN/PELVIS W/O: Encounter: Initial Comparison: None Technique: Axial CT images were performed through the chest, abdomen and pelvis without intravenous contrast. Coronal and sagittal two-dimensional reformats. Automated Exposure Control and Iterative Reconstruction dose reducing techniques were utilized. Findings: Chest: Mild basilar atelectasis. No pneumonia, pleural effusion or pneumothorax. The central airways are patent. No axillary or mediastinal adenopathy. Heart size is mildly enlarged. No pericardial effusion. Small hiatal hernia. Abdomen/pelvis: Evaluation of solid organs is somewhat limited without IV contrast. Liver is grossly normal. Gallbladder is distended with some sludge debris present. The spleen, pancreas and adrenals are within normal limits. Severe bilateral hydronephrosis with a markedly atrophic left kidney. There is no evidence of prior bladder surgery. Multiple hernias are present. There is a parastomal hernia containing small bowel. This appears to be a diverting ileostomy. There are also two adjacent Pryor's hernias containing loops of moderately dilated small bowel in the central abdomen. These are best seen on sagittal image #31. The more superior hernia has a fascial defect approximately 4.3 cm while the more inferior hernia has a fascial opening of 3.2 cm. There are also bilateral inguinal hernias. The left-sided inguinal hernia contains a dilated loop of presumably incarcerated small bowel. The right-sided hernia appears to be the site of obstruction containing dilated and nondilated loops of small bowel with decompressed small bowel distal to this hernia sac. No free air identified. Bone windows show no acute findings. There is high attenuation in the left proximal quadriceps musculature which could be due to hematoma or calcification. Mild edema in the root of the mesentery. Impression: 1. No acute disease process seen in the chest. 2. Multiple abdominal and pelvic hernias with evidence of acute small bowel obstruction due to an incarcerated right inguinal hernia. Probable incarcerated left inguinal hernia as well. Possible developing vascular compromise. No definite evidence of bowel perforation currently. Emergent surgical consultation is recommended. There is a preliminary report by [employer]. .
--- NOTE | 2017-01-17 09:40 | DI ---
Indication: ITS.REASON: fall, pain PROCEDURE: CT HEAD W/O CONTRAST: Encounter: Initial Comparison: None Technique: Axial CT images through the head were performed without contrast. Iterative Reconstruction dose reducing technique was utilized. FINDINGS: The ventricles are of normal size, shape, and configuration for the patient's age. Old basal ganglia lacunar infarcts. There is no evidence of acute intracranial hemorrhage, midline displacement, or mass effect. There are scattered areas of low attenuation in the white matter which most likely represent changes of chronic microvascular ischemia. The CT attenuation of the brain parenchyma is otherwise normal within the cerebellum, brain stem, and cerebral hemispheres. The tympanic cavities and mastoid air cells are free of appreciable disease. There are no definite fractures of the skull base, calvarium, or visualized portion of the midface. IMPRESSION: No CT evidence of acute traumatic intracranial injury. There is a preliminary report by [employer]. .
--- NOTE | 2017-01-17 09:41 | DI ---
Indication: ITS.REASON: fall with neck pain PROCEDURE: CT CERVICAL SPINE W/O CONTRAST: Encounter: Initial Comparison: None Technique: Axial CT images through the cervical spine were performed without contrast. Coronal and sagittal reformatted images were also obtained. Automated Exposure Control and Iterative Reconstruction dose reducing techniques were utilized. FINDINGS: The alignment of the cervical spine is shows mild degenerative grade 1 anterolisthesis of C4 on C5 and C5 on C6. Multilevel degenerative changes are present. There is no evidence of acute fracture or subluxation of the cervical spine. The atlantoaxial articulation, dens, and upper cervical spine demonstrate no subluxation. The paraspinal soft tissues and spinal canal appear unremarkable. IMPRESSION: No acute traumatic abnormality of the cervical spine. There is a preliminary report by [facility]. .
== END 2017-01-16 09:15 | disposition short-term general hospital (02) ==
LOC: ED 06:04
DX: E87.5 Hyperkalemia (principal); E86.0 Dehydration; I13.0 Hypertensive heart and chronic kidney disease with heart failure and stage 1 through stage 4 chronic kidney disease, or unspecified chronic kidney disease; N18.9 Chronic kidney disease, unspecified; I50.9 Heart failure, unspecified; N17.9 Acute kidney failure, unspecified; K56.60 Unspecified intestinal obstruction
CPT/HCPCS: 36415; 70450; 71250; 72125; 74176; 80053; 81001; 83605; 83690; 84145; 84484; 85025; 87040; 87086; 87205; 93005; 96365; 96375; 99285; A9270; J0610; J2405; J3490; J7050; J7070; 87150